=== PATIENT | male | born 1950 | race Caucasian/White ===

== ENCOUNTER 2017-01-25 13:20 | Emergency (ER) | payer OTHER ==
[~2017-01-25] VITALS: Ht 167.6 cm; Wt 71.0 kg
[2017-01-25 13:24] VITALS: Ht 167.6 cm; Wt 71.0 kg
--- NOTE | 2017-01-25 15:12 | ERD ---
ER Documentation Chief Complaint Chief Complaint c/o sore throat x 3 days. HPI 66-year-old male presents emergency department for sore throat for 3 days. Stated he felt like he had a fever yesterday but never took his temperature. Denies headache, dizziness, changes in vision, neck pain, neck stiffness, difficulty swallowing, loss of appetite, shoulder pain, chest pain, back pain, abdomen, nausea, vomiting, constipation, diarrhea, urinary symptoms, loss of bowel bladder control, trauma, injury, falls, recent travel, recent exposure to any illness, recent antibiotic use in the last 3 months, chills. His past medical history of hypertension. Stated that he takes his prescription medication for his hyper tension regularly. No surgical history. Not a smoker. ROS All systems reviewed and are negative except as per history of present illness. Medications Home Meds Active Scripts Acetaminophen* (Tylophen*) 500 Mg Capsule, 1 CAP PO Q6H Y for PAIN AND OR ELEVATED TEMP, #20 CAP Prov:JC CHRISTINE 01/25/17 Amoxicillin/Potassium Clav (Amox-Clav 875-125 mg Tablet) 875-125 mg Tab, 1 TAB PO BID for 7 Days, #14 TAB Prov:JC CHRISTINE 01/25/17 Allergies Allergies: Coded Allergies: No Known Allergy (Unverified , 01/25/17) PMhx/Soc Medical and Surgical Hx: pt denies Surgical Hx Hx Cardiac Disorders: Yes (HYPERTENSION) Hx Alcohol Use: No Hx Substance Use: No Hx Tobacco Use: No Smoking Status: Never smoker Physical Exam Vitals Vital Signs Date Time Temp Pulse Resp B/P Pulse Ox O2 Delivery O2 Flow Rate FiO2 01/25/17 13:24 98.2 79 18 178/79 97 Physical Exam Const: Well-appearing. Not in acute respiratory distress. Head: Atraumatic Eyes: Normal Conjunctiva. Extraocular movement of his eyes within normal limits. No pain in eye movement. No visual field loss. ENT: Normal External Ears, Nose and Mouth. Throat: Uvula is midline not displaced. Tonsils are +2 bilaterally with redness but no exudates. Tolerating secretions. Patent airway. Speaks full and clear sentences. Neck: Full range of motion..~ No meningismus. No neck stiffness. No signs of meningeal irritation. Resp: Clear to auscultation bilaterally Cardio: Regular rate and rhythm, no murmurs Abd: Soft, non tender, non distended. Normal bowel sounds Skin: No petechiae or rashes. No skin tenting. No signs of dehydration. Back: No midline or flank tenderness Ext: No cyanosis, or edema Neur: Awake and alert. No neurological deficits. Romberg test negative. Psych: Normal Mood and Affect Procedures/MDM Differential: I have low suspicion for severe or serious bacterial infection, peritonsillar abscess, pneumonia, otitis media, mastoiditis given the physical exam, patient is well-appearing, vital signs are unremarkable. Final diagnosis: Pharyngitis. Prescription: Augmentin. Tylenol. Tessalon Perles. Follow-up with PCP in the next 3-4 days. Come back here in the emergency department for any new symptoms or any worsening of symptoms. All questions and concerns are answered. Patient verbalized understanding and agreed with the plan of care. Hemodynamically stable on discharge. Departure Diagnosis: Primary Impression: Sore throat Additional Impression: Pharyngitis Condition: Stable Additional Instructions: Follow-up with PCP in the next 3-4 days. Come back here in the emergency department for any new symptoms or any worsening of symptoms. All questions and concerns are answered. Patient verbalized understanding and agreed with the plan of care. JC CHRISTINE Jan 25, 2017 15:12
[2017-01-25] MEDS ORDERED: AMOX1TAB10 PO (15:14)
[2017-01-25] MEDS ORDERED: ACET500C5 PO (15:14)
== END 2017-01-25 16:08 | disposition home or self-care (01) ==
LOC: FTE 13:20
DX: J02.9 Acute pharyngitis, unspecified (principal); I10 Essential (primary) hypertension
CPT/HCPCS: 99283